=== PATIENT | female | born 1980 | race Caucasian/White ===

== ENCOUNTER → 2022-04-06 | Outpatient (REF) | LOC: M EMP 10:11 | PROVIDERS: ATTEND Family Medicine | DX: Z20.822 Contact with and (suspected) exposure to COVID-19 (principal) ==

== ENCOUNTER → 2022-05-13 | Outpatient (CLI) | payer OTHER ==
[2022-05-13 08:59] LABS: BASO % 0.4 % (0.0-1.0); EOS # 0.1 10^3/uL (0.0-0.5); EOS % 1.1 % (0.0-3.0); HEMATOCRIT 39.5 % (36.0-47.0); LYMPH # 1.7 10^3/uL (1.5-5.0); LYMPH % 29.8 % (24.0-44.0); MEAN CORPUSCULAR HEMOGLOBIN 29.3 pg (27.0-33.0); MEAN CORPUSCULAR HGB CONC 32.9 g/dl (32.0-36.5); MONO # 0.6 10^3/uL (0.0-0.8); MONO % 9.8 % (2.0-8.0); NEUTROPHILS # 3.3 10^3/uL (1.5-8.5); NEUTROPHILS % 58.4 % (36.0-66.0); PLATELET COUNT, AUTOMATED 261 10^3/uL (150-450); RED BLOOD COUNT 4.44 10^6/uL (4.00-5.40); WHITE BLOOD COUNT 5.7 10^3/uL (4.0-10.0)
[2022-05-13 10:13] LABS: ALT/SGPT 18 U/L (12-78); BILIRUBIN,TOTAL 0.6 MG/DL (0.2-1.0); BLOOD UREA NITROGEN 9 MG/DL (7-18); CALCIUM LEVEL 9.2 MG/DL (8.5-10.1); CARBON DIOXIDE LEVEL 26 MEQ/L (21-32); CHLORIDE LEVEL 106 MEQ/L (98-107); CHOLESTEROL LEVEL 169 MG/DL (<200); CHOLESTEROL RISK RATIO 2.347 (<5); CREATININE FOR GFR 0.75 MG/DL (0.55-1.30); GLOMERULAR FILTRATION RATE > 60.0 (>58); GLUCOSE, FASTING 78 MG/DL (70-100); HDL CHOLESTEROL 72 MG/DL (>40); LDL CHOLESTEROL 84 MG/DL (<100); NON-HDL-C 97 MG/DL; POTASSIUM SERUM 4.2 MEQ/L (3.5-5.1); SODIUM LEVEL 139 MEQ/L (136-145); TOTAL PROTEIN 6.6 GM/DL (6.4-8.2); TRIGLYCERIDES LEVEL 64 MG/DL (<150)
[2022-05-13 10:32] LABS: HEMOGLOBIN A1c 5.1 %
[2022-05-13 20:36] LABS: TOTAL 25(OH) VITAMIN D 21.2 NG/ML (30.0-100.0); VITAMIN B12 LEVEL 695 PG/ML (247-911)
== END ==
LOC: M LAB 08:02
PROVIDERS: ATTEND Physician Assistant
DX: Z13.29 Encounter for screening for other suspected endocrine disorder (principal); Z13.220 Encounter for screening for lipoid disorders

== ENCOUNTER → 2022-05-25 | Outpatient (REF) ==
[2022-05-25 14:38] LABS: RSV AMPLIFICATION NEGATIVE (NEGATIVE)
== END ==
LOC: M LABSMTC 09:51
PROVIDERS: ATTEND Family Medicine
DX: Z11.52 Encounter for screening for COVID-19 (principal)

== ENCOUNTER → 2023-09-13 | Outpatient (CLI) | payer OTHER ==
[2023-09-13 14:53] LABS: BASO % 0.4 % (0.0-1.0); EOS % 0.4 % (0.0-3.0); HEMATOCRIT 38.9 % (36.0-47.0); LYMPH # 1.9 10^3/uL (1.5-5.0); LYMPH % 27.7 % (24.0-44.0); MEAN CORPUSCULAR HEMOGLOBIN 29.5 pg (27.0-33.0); MEAN CORPUSCULAR HGB CONC 33.4 g/dl (32.0-36.5); MEAN CORPUSCULAR VOLUME 88.4 fl (80.0-96.0); MONO # 0.6 10^3/uL (0.0-0.8); MONO % 8.6 % (2.0-8.0); NEUTROPHILS # 4.4 10^3/uL (1.5-8.5); NEUTROPHILS % 62.6 % (36.0-66.0); PLATELET COUNT, AUTOMATED 276 10^3/uL (150-450)
[2023-09-13 15:13] LABS: IRON (FE) 133 UG/DL (50-170); PERCENT SATURATION 34.1 % (13.2-45.0); TOTAL IRON BINDING CAPACITY 390 UG/DL (250-425)
[2023-09-13 15:14] LABS: ALBUMIN 4.2 G/DL (3.2-5.2); ALKALINE PHOSPHATASE 48 U/L (46-116); ALT/SGPT 15 U/L (7.0-40); AST/SGOT 12 U/L (<34); BILIRUBIN,TOTAL 0.6 MG/DL (0.3-1.2); BLOOD UREA NITROGEN 8 MG/DL (9-23); CALCIUM LEVEL 9.3 MG/DL (8.5-10.1); CARBON DIOXIDE LEVEL 28 MMOL/L (20-31); CHLORIDE LEVEL 108 MMOL/L (98-107); CHOLESTEROL LEVEL 187 MG/DL (<200); CHOLESTEROL RISK RATIO 2.71 (<5); CREATININE FOR GFR 0.77 MG/DL (0.55-1.30); FOLATE > 24.0 NG/ML (>5.4); GLOMERULAR FILTRATION RATE > 60.0 (>58); GLUCOSE, FASTING 82 MG/DL (60-100); HDL CHOLESTEROL 68.9 MG/DL (>40); LDL CHOLESTEROL 105.9 MG/DL (<100); NON-HDL-C 118.1 MG/DL; POTASSIUM SERUM 3.9 MMOL/L (3.5-5.1); SODIUM LEVEL 136 MMOL/L (136-145); TOTAL 25(OH) VITAMIN D 25.7 NG/ML (20.0-100.0); TOTAL PROTEIN 6.5 G/DL (5.7-8.2); TRIGLYCERIDES LEVEL 61 MG/DL (<150); VITAMIN B12 LEVEL 739 PG/ML (211-911)
[2023-09-13 15:15] LABS: FERRITIN 7.5 NG/ML (7.3-270.7); THYROID STIMULATING HORMONE 4.009 uIU/ML (0.55-4.78)
[2023-09-13 15:16] LABS: FREE T4 0.97 NG/DL (0.89-1.76)
== END ==
LOC: M RAD 13:36 → M LAB 13:36
PROVIDERS: ATTEND Physician Assistant
DX: Z13.220 Encounter for screening for lipoid disorders (principal); M54.59 Other low back pain; Z13.29 Encounter for screening for other suspected endocrine disorder; E55.9 Vitamin D deficiency, unspecified

== ENCOUNTER → 2023-11-30 | Outpatient (REF) | payer OTHER | LOC: M LAB REF 17:21 | PROVIDERS: ATTEND Family Medicine | DX: N39.0 Urinary tract infection, site not specified (principal) ==

== ENCOUNTER → 2024-03-27 | Outpatient (REF) | LOC: M EMP 09:58 | PROVIDERS: ATTEND Family Medicine | DX: Z20.828 Contact with and (suspected) exposure to other viral communicable diseases (principal) ==

== ENCOUNTER → 2024-07-14 | Outpatient (CLI) | payer OTHER | LOC: M RAD 06:20 | PROVIDERS: ATTEND Physician Assistant | DX: M51.16 Intervertebral disc disorders with radiculopathy, lumbar region (principal); M51.360 Other intervertebral disc degeneration, lumbar region with discogenic back pain only; M51.A4 Intervertebral annulus fibrosus defect, small, lumbosacral region; M99.63 Osseous and subluxation stenosis of intervertebral foramina of lumbar region ==

== ENCOUNTER 2024-09-14 07:00 | Outpatient (RCR) | payer OTHER | END 2024-09-15 | LOC: M PT 07:00 | PROVIDERS: ATTEND Physician Assistant | DX: M51.16 Intervertebral disc disorders with radiculopathy, lumbar region (principal) ==

== ENCOUNTER 2024-09-26 07:00 | Outpatient (RCR) | payer OTHER | END 2024-10-16 | LOC: M PT 07:00 | PROVIDERS: ATTEND Physician Assistant | DX: M51.16 Intervertebral disc disorders with radiculopathy, lumbar region (principal) ==

== ENCOUNTER → 2024-10-11 | Outpatient (CLI) | payer OTHER ==
[~2024-10-11] VITALS: Ht 165.1 cm; Wt 53.9 kg
[~2024-10-11] MED LIST: ALBUTEROL SULFATE 2.5MG/0.5ML INH NEB SOLN INH PRN; EPINEPHrine INJ 1 MG/ML 1ML AMP IM PRN; NS (Normal Saline) 0.9% 1,000 ML IV SCH; diphenhydrAMINE 50MG/ML VIAL IV PRN; methylPREDNISolone 125MG 2ML VIAL IV PRN
[2024-10-11 13:00] VITALS: BP 150/68; O2SAT 100
[2024-10-11] MEDS: FERRIC CARBOXYMALTOSE 750 MG (VIAL MATE) IN 100ML NS IV ONE (13:11)
[2024-10-11 14:09] VITALS: BP 130/65; O2SAT 98
== END ==
LOC: M INFU 12:53
PROVIDERS: ATTEND Family Medicine
DX: D50.9 Iron deficiency anemia, unspecified (principal)
CPT/HCPCS: 96365; J1439

== ENCOUNTER 2024-10-18 11:40 | Outpatient (CLI) | payer OTHER ==
[~2024-10-18] VITALS: Ht 165.1 cm; Wt 53.2 kg
[2024-10-18 11:40] VITALS: BP 114/58; O2SAT 95
[2024-10-18] MEDS: FERRIC CARBOXYMALTOSE 750 MG (VIAL MATE) IN 100ML NS IV ONE (11:57)
[2024-10-18 12:29] VITALS: BP 118/58; O2SAT 99
== END 2024-10-18 12:30 ==
LOC: M INFU 11:40
PROVIDERS: ATTEND Family Medicine
DX: D50.1 Sideropenic dysphagia (principal)
CPT/HCPCS: 96365; J1439

== ENCOUNTER → 2025-06-28 | Outpatient (CLI) | payer OTHER ==
[2025-06-28 10:46] LABS: BASO # 0.0 10^3/uL (0.0-0.2); BASO % 0.5 % (0.0-1.0); EOS # 0.1 10^3/uL (0.0-0.5); EOS % 1.3 % (0.0-3.0); LYMPH # 2.2 10^3/uL (1.5-5.0); LYMPH % 33.9 % (24.0-44.0); MONO # 0.5 10^3/uL (0.0-0.8); MONO % 8.4 % (2.0-8.0); NEUTROPHILS # 3.6 10^3/uL (1.5-8.5); NEUTROPHILS % 55.4 % (36.0-66.0); PLATELET COUNT, AUTOMATED 259 10^3/uL (150-450)
[2025-06-28 11:13] LABS: ALT/SGPT 31 U/L (7.0-40); AST/SGOT 18 U/L (<34); CALCIUM LEVEL 9.4 MG/DL (8.5-10.1); CARBON DIOXIDE LEVEL 29 MMOL/L (20-31); CHLORIDE LEVEL 103 MMOL/L (98-107); CHOLESTEROL LEVEL 220 MG/DL (<200); CHOLESTEROL RISK RATIO 3.08 (<5); CREATININE FOR GFR 0.73 MG/DL (0.55-1.30); FREE T4 1.30 NG/DL (0.89-1.76); GLOMERULAR FILTRATION RATE > 90.0 (>58); IRON (FE) 91 UG/DL (50-170); LDL CHOLESTEROL 132.2 MG/DL (<100); NON-HDL-C 148.6 MG/DL; POTASSIUM SERUM 4.6 MMOL/L (3.5-5.1); SODIUM LEVEL 137 MMOL/L (136-145); TRIGLYCERIDES LEVEL 82 MG/DL (<150)
[2025-06-28 11:16] LABS: TOTAL 25(OH) VITAMIN D 40.3 NG/ML (20.0-100.0)
[2025-06-28 12:08] LABS: ESTIMATED AVERAGE GLUCOSE 97.0 MG/DL (60-110)
== END ==
LOC: M LAB 09:23
PROVIDERS: ATTEND Family Medicine
DX: D50.9 Iron deficiency anemia, unspecified (principal); Z13.29 Encounter for screening for other suspected endocrine disorder; Z13.220 Encounter for screening for lipoid disorders